=== PATIENT | female | born 1990 | race Two or more races ===

== ENCOUNTER 2019-12-24 17:20 | Emergency (ER) | payer MEDICAID, OTHER ==
[~2019-12-24] VITALS: Ht 167.6 cm; Wt 63.5 kg
[2019-12-24 18:53] VITALS: BP 105/62
== END 2019-12-24 20:20 | disposition home or self-care (01) ==
LOC: ER 17:20
DX: J06.9 Acute upper respiratory infection, unspecified (principal); B34.9 Viral infection, unspecified

== ENCOUNTER 2021-01-03 05:29 | Emergency (ER) | payer MEDICAID ==
[~2021-01-03] VITALS: Ht 167.6 cm; Wt 63.5 kg
[2021-01-03 05:36] VITALS: BP 122/65
== END 2021-01-03 07:50 | disposition home or self-care (01) ==
LOC: ER 05:29
DX: J20.9 Acute bronchitis, unspecified (principal); Z20.822 Contact with and (suspected) exposure to COVID-19
CPT/HCPCS: 36415; 71045; 87426